=== PATIENT | male | born 1945 | race Caucasian/White ===

== ENCOUNTER 2017-05-19 00:09 | Day surgery (SDC) | payer MEDICARE, OTHER ==
[~2017-05-19] VITALS: Ht 180.3 cm; Wt 113.4 kg
[~2017-05-19 00:09] MED LIST: AMIO200T PO; ASCO100089 PO; B COMPLEX VITAMIN; BACL10TA PO; CARV25TA PO; CHOL200012 PO; CRES20T PO; CYAN10009 PO; DABI150C PO; DOCU-41 PO; FUR20 PO; Fentanyl TOPICAL; GABA400C PO; GEMF600T PO; GLIM4TAB PO; INSU100I13 SUBQ; IRON15TA3 PO; KRIL1CAP PO; LEVO88TA4 PO; LISI-571 PO; MULT1CAP33 PO; NITR12SP5 TL; NYST1POW25 TOPICAL; PANT20TA2 PO; POLY17PO6 PO; [UNRECOGNIZED DRUG - OTHER] PO; ancef IV
[2017-05-19] MEDS ORDERED: Propofol 10 mg/mL 20 mL Inj ONE (00:10)
[2017-05-19] MEDS ORDERED: Lactated Ringer's 1,000 ML IV ONE (06:00)
[2017-05-19 09:03] VITALS: BP 136/61; PULSE 52; RESP 16; O2SAT 96
[2017-05-19] MEDS ORDERED: Lactated Ringer's 1,000 ML IV SCH (10:12)
--- NOTE | 2017-05-19 10:12 | PCM.HPANE ---
Patient Data Date of Service: May 19, 2017 Surgeon Admitting Provider: Attending Provider:Gus Conti MD Primary Care Physician:Ever Renee MD Other Provider:Devi Gunter Anesthesia Reason for Visit Colon Ca Screen Ht/WT & BMI Height (Feet): 5 Height (Inches): 11 Weight (Kilograms): 113.40 Body Mass Index 35.00 Allergies Coded Allergies: TAPE (Verified Allergy, Severe, Rash (From Adhesive/EKG patches--Paper OK ), 05/18/17) clindamycin (Verified Allergy, Severe, rash, 05/18/17) Sulfa (Sulfonamide Antibiotics) (Verified Allergy, Unknown, 05/18/17) aluminum (Verified Allergy, Unknown, 05/18/17) Past Anesthesia History Anesthesia History: Denies:: Abnormal Airway, Anesthesia Reactions, Difficult Intubation, Fam Anesthesia Reaction, Fam Malignant Hypertherm, Malignant Hyperthermia Diabetes History Hx Diabetes?: Yes Current Bedside Blood Glucose: 122 MRSA MRSA: No Medications Blood Thinner: Pradaxa Last Dose Blood Thinner: May 14, 2017 Home Meds Incl Beta Emil: Yes Date Beta Emil Taken: May 19, 2017 Time Beta Emil Taken: 629 Active Scripts Nystatin 1 Each Powder.ea.1 Applic TOPICAL BID 7 Days Ref 0 Prov:Iris Desai MD 03/31/16 Polyethylene Glycol 3350 (Miralax)17 Gm Powd.pack17 Gm PO DAILY 30 Days Ref 0 Prov:Iris Desai MD 03/31/16 Furosemide 20 Mg Tab20 Mg PO DAILY 30 Days Ref 0 Prov:Iris Desai MD 03/31/16 Gabapentin (Neurontin)400 Mg Bdajbjh786 Mg PO QID 30 Days Ref 0 Prov:Iris Desai MD 03/31/16 Lisinopril 5 Mg Tablet5 Mg PO DAILY #30 TABLET Ref 0 Prov:Iris Desai MD 03/31/16 Baclofen 10 Mg Bzsatz11 Mg PO TID PRN For Spasm 30 Days Ref 0 Prov:Iris Desai MD 03/31/16 Insulin Glargine (Lantus U100 Solostar Insulin Pen)100 Unit/1 Ml Insuln.pen36 Unit SUBQ BID 10 Days Ref 0 half dose if not eating or blood sugar less than 110 Prov:Iris Desai MD 03/31/16 Reported Medications [B50 Complex Vitamin] No Conflict Check1 Tab BID 03/25/16 Iron,Carbonyl (Iron Chews)15 Mg Tab.chew60 Mg PO BID 03/25/16 Krill/Om3/Dha/Epa/Om6/Lip/Astx (Krill Oil 1,000 mg Softgel)1 Each Capsule1 Each PO BID 03/25/16 Docusate Sodium (Colace)100 Mg Yudhkjg116 Mg PO DAILY Ref 0 03/21/[address] 20 Mg Tablet.dr20 Mg PO DAILY Ref 0 03/21/16 Levothyroxine 88 Mcg Tnmiyi02 Mcg PO DAILY Ref 0 03/21/16 Ascorbic Acid (Vitamin C)1,000 Mg Tab.chew1,000 Mg PO BID 30 Days Ref 0 06/02/14 Cholecalciferol (Vitamin D3) (D3-2000)2,000 Unit Capsule2,000 Iu PO BID 06/02/14 Cyanocobalamin (Vitamin B-12) (Vitamin B-12)1,000 Mcg Tablet.er1,000 Mcg PO DAILY 06/02/14 Multivitamin (Multivitamins)1 Each Capsule1 Each PO DAILY 06/02/14 Nitroglycerin (Nitrolingual)12 Gm Spray0.4 Mg TL 06/02/14 Gemfibrozil (Lopid)600 Mg Fgghkb445 Mg PO BID 06/02/14 Glimepiride (Amaryl)4 Mg Tablet4 Mg PO AM 06/02/14 Rosuvastatin Calcium (Crestor)20 Mg Covtnw34 Mg PO PM 30 Days Ref 0 06/02/14 Carvedilol (Coreg)25 Mg Csimhd54.5 Mg PO BID 30 Days Ref 0 06/02/14 Dabigatran Etexilate Mesylate (Pradaxa)150 Mg Wxvrsbu685 Mg PO BID 30 Days 06/02/14 Amiodarone 200 Mg Dqtymm555 Mg PO DAILY 30 Days Ref 0 06/02/14 Discontinued Reported Medications [probiotic chewale] No Conflict Check1 Tab PO BID 03/25/16 Discontinued Scripts [ancef] No Conflict Check2 G IV Q8H 35 Days Prov:Iris Desai MD 03/31/16 [Fentanyl] (Duragesic 12 mCg/Hr Patch)1 PATCH PATCH No Conflict Check1 Patch TOPICAL Q3D 15 Days Ref 0 Prov:Iris Desai MD 03/31/16 History History of ENT Problems?: No HEENT History: Positive for:: Cataracts (Minor Lt.) Sinus Problem (Chronic Sinusitis) Denies:: Abnormal Airway Difficult Intubation Dysphagia Hearing Problem TMJ Denture Type: None Teeth Condition: Within Normal Limits Hx of Heart Problems?: Yes Cardiovascular History: Positive for:: Cardiac Surgery (15 STENTS ) Chest Pain Congestive Heart Failure Edema Heart Murmur Hypertension Denies:: AICD Abdominal Aortic Aneurism Atrial Fibrillation Irregular Heartbeat Pacemaker Rheumatic Fever Thrombophlebitis Valvular Heart Disease Other Cardiac History: CHF Hx of Respiratory Problem?: No Respiratory History: Positive for:: Dyspnea Denies:: Asthma COPD Chest Surgery Cough Emphysema Hemoptysis Oxygen Administration Pneumonia Pulmonary Embolism Tuberculosis Hx Neurologic Problems?: Yes Neurological History: Positive for:: Headaches Denies:: Alzheimer's Disease CVA Dementia Dizziness Multiple Sclerosis Parkinson's Disease Seizures Hx of GI Problems?: Yes Hx of Problems?: Yes Genitourinary History: Positive for:: Urinary Tract Infection Denies:: HX of Hemodialysis Kidney Stones HX of Peritoneal Dialysis: No Male Hx: Positive for:: Prostate Problems Denies:: Scrotal Mass Testicular Surgery Skin History: Denies:: History Skin Disorders? Pressure Ulcers Hx Musculoskeletal Problems?: Yes Musculoskeletal History: Positive for:: Degenerative Joint (Knees/Hips) Denies:: Back Injury Fibromyalgia Joint Replacement Musculoskeletal Trauma Systemic Lupus Hx of Psycho/Social Problems?: No Psycho Social History: Denies:: Anxiety Bipolar Disorder Hx Depression Suicide Attempt Hx Surgeries?: Yes (SEVERAL STENTS, GASTRIC BYPASS, SHOULDER, KNEE, RIB RESECTION) Hx Any Other Health Problems?: Yes Other History: Positive for:: Thyroid Disease Denies:: Cancer Endocrine Disease Hospitalization History Blood Transfusions: Denies:: Blood Transfusions Hx Diabetes: YesBedside Blood Glucose: 122 Other Pertinent History: DIABETES Hx Alcohol Use: Yes (BEER ONCE IN A WHILE)Hx Substance Use: No Smoking Status: Former Smoker Never Smoker Have You Smoked inLast 12 mo: Yes (Quit 2002 1-2pks/day) Stop/Bang Treated for Sleep Apnea?: Yes Do You Have a CPAP Machine?: Yes Risk Assessment Category Category 1A: Patient has history of documented sleep apnea, and HAS NOT received any narcotic, sedative or anesthesia administration during this stay. Category 1B: Patient has history of documented sleep apnea, and HAS received any narcotic , sedative or anesthesia administration during this stay Category 2: Patient has SUSPECTED Obstructive Sleep Apnea, and HAS received any narcotic , sedative or anesthesia administration during this stay. Category 3: Patient has SUSPECTED Obstructive Sleep Apnea and HAS NOT received narcotic, sedative or anesthesia administration during this stay. Category 4: Outpatient in Procedural Areas with known sleep apnea or who screen positive for High Risk via the STOP/BANG questionnaire. Exam Exam Vital Signs Vital Signs Date Time Temp Pulse Resp B/P Pulse Ox O2 Delivery O2 Flow Rate FiO2 05/19/17 09:03 36.1 52 16 136/61 96 Room Air General Appearance: Alert, Oriented X3, Cooperative, No Acute Distress HEENT/AIRWAY: MP 2 Lungs: Normal Air Movement Heart: Exam Unremarkable Meds/Labs/Diagnostics Admission Meds Current Medications Lactated Ringer's (Lr) 1,000 ml @ 10 mls/hr Q24H ONCE IV Last administered on 05/19/17t 09:25; Start 05/19/17 at 06:00; Stop 05/20/17 at 05:59 Bedside Blood Glucose: 122 Plan Impression Patient chart reviewed, patient interviewed and anesthestic plan with risks, benefits, and alternatives discussed, and informed consent obtained. NPO per Anesth. Guidelines: Yes ASA Physical Status: ASA3 Severe Disease (CAD) Anesthetic Plan: MAC Bene/Risks/Altern/Consents: Yes HP Complete Prior to Induction: Yes Troy Marcum MD May 19, 2017 09:29
[2017-05-19] MEDS ORDERED: Ondansetron 2 mg/mL 2 mL Inj IVPUSH PRN (10:15)
[2017-05-19] MEDS ORDERED: MetoCLOpramide 5 mg/mL 2 mL Inj IVPUSH PRN (10:15)
[2017-05-19 10:36] VITALS: BP 123/61; PULSE 49; RESP 14; O2SAT 96
--- NOTE | 2017-05-19 10:45 | PCM.ANEP1 ---
Post Anesthesia PACU Phase 1 Assessment Date of Service: May 19, 2017 Vital Signs Vital Signs Date Time Temp Pulse Resp B/P Pulse Ox O2 Delivery O2 Flow Rate FiO2 05/19/17 10:36 36.1 49 14 123/61 96 Room Air 05/19/17 09:03 36.1 52 16 136/61 96 Room Air Anesthetic Administered: MAC Level of Alertness: Awake, talking STERN's with Equal Strength: Yes Pain: No Nausea or Vomiting: No CV Function & Hydration Stable: Yes Airway Device: Lungs: Normal Air Movement Dermatome Level: Full Sensation PACU Phase 2 Assessment Complications: No Follow up Care: N/A Patient Instructions Provided: N/A Troy Marcum MD May 19, 2017 10:45
[2017-05-19 10:46] VITALS: BP 151/74; PULSE 48; RESP 14; O2SAT 96
[2017-05-19 10:51] VITALS: BP 128/45; PULSE 50; RESP 16; O2SAT 99
--- NOTE | 2017-05-19 11:16 | ENDO ---
[address] [address] ENDOSCOPY PROCEDURE PATIENT: DEREK WAGGONER : 1945 MR#: [id number] ADMIT: 05/19/2017 JOB ID: [id number] DATE OF SERVICE: 05/19/2017 TYPE OF OPERATION: Colonoscopy. PREOPERATIVE DIAGNOSIS(ES): Colorectal cancer screening. POSTOPERATIVE DIAGNOSIS(ES): Normal colonoscopy. ANESTHESIA: Monitored anesthesia care. COMPLICATIONS: None. BLOOD LOSS: Minimal. DESCRIPTION OF PROCEDURE: After risks and benefits were explained to the patient, informed consent was obtained. After anesthesia administered, colonoscope was then inserted per rectum to cecum. Mucosa carefully examined. Prep of the patient was suboptimal. After procedure was done, the scope withdrawn and procedure terminated. FINDINGS: Upon inspection of the anus, no masses, hemorrhoids, ulcers, fissures that were seen. Throughout the entire examination, there were large amounts of liquid stool that were seen throughout the entire colon. Otherwise, there were no polyps or masses that were seen. Retroflexion is normal. IMPRESSION: Normal colonoscopy. RECOMMENDATIONS: Repeat colonoscopy in five years given suboptimal prep. Follow up in GI Clinic as needed.
== END 2017-05-19 23:59 | disposition home or self-care (01) ==
LOC: END 00:09
PROVIDERS: ATTEND Internal Medicine Gastroenterology
DX: Z12.11 Encounter for screening for malignant neoplasm of colon (principal); Z86.010 Personal history of colon polyps; G47.33 Obstructive sleep apnea (adult) (pediatric); I48.91 Unspecified atrial fibrillation; I10 Essential (primary) hypertension; E03.9 Hypothyroidism, unspecified; E11.9 Type 2 diabetes mellitus without complications; I25.10 Atherosclerotic heart disease of native coronary artery without angina pectoris; E78.5 Hyperlipidemia, unspecified; I25.2 Old myocardial infarction; Z98.84 Bariatric surgery status; Z79.01 Long term (current) use of anticoagulants; Z79.4 Long term (current) use of insulin; Z79.84 Long term (current) use of oral hypoglycemic drugs
CPT/HCPCS: G0105; J7120